=== PATIENT | female | born 1985 | race Caucasian/White ===

== ENCOUNTER → 2023-10-30 12:02 | Outpatient (REF) | payer OTHER, SELFPAY | LOC: WDC 12:02 | PROVIDERS: ATTENDING PHYSICIAN Physician Assistant Medical | DX: Z12.31 Encounter for screening mammogram for malignant neoplasm of breast (principal) | CPT/HCPCS: 77063; 77067 ==

== ENCOUNTER → 2024-10-30 11:56 | Outpatient (REF) | payer OTHER, SELFPAY | LOC: WDC 11:56 | PROVIDERS: ATTENDING PHYSICIAN Physician Assistant Medical | DX: R00.2 Palpitations (principal); R20.2 Paresthesia of skin; Z12.31 Encounter for screening mammogram for malignant neoplasm of breast | CPT/HCPCS: 72050; 72110; 77063; 77067 ==